=== PATIENT | male | born 1970 | race Caucasian/White ===

== ENCOUNTER 2018-02-16 14:31 | Emergency (ER) | payer BC, OTHER ==
[2018-02-16] MEDS ORDERED: KETOROLAC TROMETHAMINE 60 MG/2 ML SDV IM ONE (15:04)
[2018-02-16] MEDS ORDERED: ACETAMINOPHEN 325 MG TABLET PO ONE (15:05)
--- NOTE | 2018-02-16 15:06 | ER Document Report ---
ED Medical Screen (RME) - General Chief Complaint: Fall Injury Stated Complaint: NECK/BACK/CHEST PAIN Time Seen by Provider: 02/16/18 14:56 TRAVEL OUTSIDE OF THE [place] IN LAST 30 DAYS: No - HPI Patient complains to provider of: [email or web address] Notes: 02/16/18 15:03 47-year-old man presents after fall at work. Patient was working about 8 feet in the air when the scaffolding he was on collapsed patient fell feet for 8 feet off the ground down onto his upper back and neck. Patient initially had paresthesias in his lower extremities not able to rise. Able to get himself to his feet and actually drove himself to the department. Patient emergently placed in a c-collar due to midline cervical spine tenderness and upper midline tenderness his thoracic spine 10/10 sharp in nature without radiation nothing is made the pain better or worse. Patient currently denies all neurologic symptoms. Denies any blood thinner use. Patient denies abdominal pain or trauma. All of his pain is located proximal level of T8 up to the back of his neck. Patient also has a sharp reproducible pain in his sternum. This pain also is 10/10 sharp in nature without radiation nothing is made it better or worse. Denies shortness of breath or coughing. 02/16/18 15:05 - Related Data Allergies/Adverse Reactions: No Known Drug Allergies Allergy (Verified 02/16/18 14:32) mushrooms Allergy (Uncoded 02/16/18 14:32) Past Medical History - Social History Chew tobacco use (# tins/day): Yes Frequency of alcohol use: None Drug Abuse: None - Past Medical History Cardiac Medical History: Reports: Hx Hypertension Renal/ Medical History: Denies: Hx Peritoneal Dialysis Past Surgical History: Reports: Hx Cholecystectomy, Hx Orthopedic Surgery - ankle - Immunizations Hx Diphtheria, Pertussis, Tetanus Vaccination: No Physical Exam - Vital signs Vitals: Temp Pulse Resp BP Pulse Ox 99.1 F 82 18 147/82 H 99 02/16/18 14:35 02/16/18 14:35 02/16/18 14:35 02/16/18 14:35 02/16/18 14:35 Course - Vital Signs Vital signs: Temp Pulse Resp BP Pulse Ox 99.1 F 82 18 147/82 H 99 02/16/18 14:35 02/16/18 14:35 02/16/18 14:35 02/16/18 14:35 02/16/18 14:35 Doctor's Discharge - Discharge Referrals: SERGIO GUERRERO MD [Primary Care Provider] - Follow up as needed
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
[2018-02-16] MEDS ORDERED: OXYCODONE-ACETAMINOPHEN 5-325 MG TABLET PO ONE (16:25)
[2018-02-16 16:39] LABS: URINE AMPHETAMINES SCREEN NEGATIVE; URINE BARBITURATES SCREEN NEGATIVE; URINE BENZODIAZEPINES SCREEN NEGATIVE; URINE COCAINE SCREEN NEGATIVE; URINE MARIJUANA (THC) SCREEN NEGATIVE; URINE METHADONE SCREEN NEGATIVE; URINE PHENCYCLIDINE SCREEN NEGATIVE
[2018-02-16 17:11] VITALS: BP 130/88
== END 2018-02-16 17:00 | disposition home or self-care (01) ==
LOC: ER 14:31
DX: S20.219A Contusion of unspecified front wall of thorax, initial encounter (principal); S39.92XA Unspecified injury of lower back, initial encounter; M54.2 Cervicalgia; M54.9 Dorsalgia, unspecified; R07.9 Chest pain, unspecified; M79.1 Myalgia; W12.XXXA Fall on and from scaffolding, initial encounter; Z87.891 Personal history of nicotine dependence; I10 Essential (primary) hypertension
CPT/HCPCS: 99284; 96372; 80307; 70450; 71250; 72125; L0120; J1885

== ENCOUNTER 2018-03-29 11:53 | Emergency (ER) | payer SELFPAY ==
[2018-03-29] MEDS ORDERED: HYDROMORPHONE HCL INJ/PF 2 MG/ML AMPULE IV ONE ×2 (12:04→12:20)
[2018-03-29] MEDS ORDERED: ONDANSETRON 4 MG TAB.RAPDIS PO ONE (12:04)
[2018-03-29] MEDS ORDERED: NORMAL SALINE 1000 ML 1,000 ML IV ONE ×2 (12:04)
[2018-03-29 12:11] LABS: ABSOLUTE EOSINOPHILS # (AUTO) 0.2 10^3/uL (0.0-0.6); ABSOLUTE LYMPHOCYTES (AUTO) 1.5 10^3/uL (0.5-4.7); ABSOLUTE MONOCYTES (AUTO) 0.7 10^3/uL (0.1-1.4); ABSOLUTE NEUT (AUTO) 5.6 10^3/uL (1.7-8.2); BASOPHILS % (AUTO) 0.6 % (0-2); EOSINOPHILS % (AUTO) 2.4 % (0-6); HEMATOCRIT 43.9 % (37.9-51.0); HEMOGLOBIN 15.4 g/dL (13.5-17.0); LYMPHOCYTES % (AUTO) 18.3 % (13-45); MEAN CORPUSCULAR HEMOGLOBIN 28.4 pg (27.0-33.4); MEAN CORPUSCULAR VOLUME 81 fl (80-97); MONOCYTES % (AUTO) 8.4 % (3-13); PLATELET COUNT 207 10^3/uL (150-450); RED CELL DISTRIBUTION WIDTH 13.6 % (11.5-14.0); SEGMENTED NEUTROPHILS % (AUTO) 70.3 % (42-78); TOTAL CELLS COUNTED % (AUTO) 100 %
[2018-03-29 12:28] LABS: ANION GAP 13 (5-19); BLOOD UREA NITROGEN 16 mg/dL (7-20); CALCIUM 9.7 mg/dL (8.4-10.2); CARBON DIOXIDE 29 mmol/L (22-30); CHLORIDE 102 mmol/L (98-107); CREATINE KINASE 105 U/L (55-170); GLUCOSE 111 mg/dL (75-110); POTASSIUM 4.4 mmol/L (3.6-5.0); SODIUM 143.8 mmol/L (137-145)
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
[2018-03-29] MEDS ORDERED: HYDROMORPHONE HCL INJ/PF 2 MG/ML AMPULE IV PRN (13:20)
[2018-03-29 14:31] VITALS: BP 130/79
== END 2018-03-29 14:45 | disposition short-term general hospital (02) ==
LOC: ER 11:53
DX: T20.29XA Burn of second degree of multiple sites of head, face, and neck, initial encounter (principal); T23.232A Burn of second degree of multiple left fingers (nail), not including thumb, initial encounter; T23.272A Burn of second degree of left wrist, initial encounter; T22.232A Burn of second degree of left upper arm, initial encounter; X08.8XXA Exposure to other specified smoke, fire and flames, initial encounter; Y92.814 Boat as the place of occurrence of the external cause; I10 Essential (primary) hypertension; Z91.018 Allergy to other foods; Z87.891 Personal history of nicotine dependence
CPT/HCPCS: 96376; 99285; 96361; 96374; 36415; 82550; 85025; 80048; S0119; J1170; J7030

== ENCOUNTER 2019-03-04 21:31 | Emergency (ER) | payer SELFPAY ==
[2019-03-04] MEDS ORDERED: ASPIRIN 81 MG TABLET, CHEWABLE PO ONE (22:22)
--- NOTE | 2019-03-04 22:56 | RADIOLOGY REPORT (SQ) ---
EXAM DESCRIPTION: XR CHEST 1 VIEW COMPLETED DATE/TME: 03/04/2019 22:22 CLINICAL HISTORY: 48 years Male, CP COMPARISON: 03/25/14 NUMBER OF VIEWS/TECHNIQUE: 1/AP FINDINGS: Adequate lung volume, clear parenchyma, normal cardiac silhouette, and intact bony thorax.Upper abdominal clips. IMPRESSION: No acute cardiopulmonary findings.
--- NOTE | 2019-03-04 22:59 | ER Document Report ---
ED Medical Screen (RME) - General Chief Complaint: Chest Pain Stated Complaint: CHEST PAIN Time Seen by Provider: 03/04/19 22:54 Primary Care Provider: SHAKILA HINSON MD [Primary Care Provider] - Follow up as needed Notes: 48-year-old male with hypertension presents to the emergency department with cough x2 days and chest pain since today. Patient states he was sitting at home at rest in the chair when he started becoming lightheaded, dizzy, diaphoretic, nauseous and had chest pain. Denies any fevers or recent illness, denies chills, denies vision changes, denies any numbness or tingling or paresthesias i n any of extremities, denies any abdominal pain, vomited one time on the way here, denies any diarrhea/constipation. No other complaints. Patient is a former smoker quit 10 years ago TRAVEL OUTSIDE OF THE [place] IN LAST 30 DAYS: No - Related Data Allergies/Adverse Reactions: No Known Drug Allergies Allergy (Verified 02/16/18 14:32) mushrooms Allergy (Uncoded 02/16/18 14:32) Past Medical History - Past Medical History Cardiac Medical History: Reports: Hx Hypertension Renal/ Medical History: Denies: Hx Peritoneal Dialysis Past Surgical History: Reports: Hx Cholecystectomy, Hx Orthopedic Surgery - Lt ankle; Lt knee - Immunizations Hx Diphtheria, Pertussis, Tetanus Vaccination: No Physical Exam - Vital signs Vitals: Temp Pulse Resp BP Pulse Ox 98.0 F 78 22 H 132/88 H 97 03/04/19 22:13 03/04/19 22:13 03/04/19 22:13 03/04/19 22:13 03/04/19 22:13 Course - Vital Signs Vital signs: Temp Pulse Resp BP Pulse Ox 98.0 F 78 22 H 132/88 H 97 03/04/19 22:13 03/04/19 22:13 03/04/19 22:13 03/04/19 22:13 03/04/19 22:13 Doctor's Discharge - Discharge Referrals: SHAKILA HINSON MD [Primary Care Provider] - Follow up as needed
[2019-03-04 23:22] LABS: ABSOLUTE BASOPHILS # (AUTO) 0.1 10^3/uL (0.0-0.2); ABSOLUTE EOSINOPHILS # (AUTO) 0.2 10^3/uL (0.0-0.6); ABSOLUTE LYMPHOCYTES (AUTO) 2.2 10^3/uL (0.5-4.7); ABSOLUTE MONOCYTES (AUTO) 0.6 10^3/uL (0.1-1.4); ABSOLUTE NEUT (AUTO) 3.6 10^3/uL (1.7-8.2); BASOPHILS % (AUTO) 0.8 % (0-2); EOSINOPHILS % (AUTO) 3.4 % (0-6); HEMATOCRIT 42.1 % (37.9-51.0); HEMOGLOBIN 14.8 g/dL (13.5-17.0); LYMPHOCYTES % (AUTO) 32.8 % (13-45); MEAN CORPUSCULAR HEMOGLOBIN 29.1 pg (27.0-33.4); MEAN CORPUSCULAR HGB CONC 35.2 g/dL (32.0-36.0); MEAN CORPUSCULAR VOLUME 83 fl (80-97); PLATELET COUNT 217 10^3/uL (150-450); RED BLOOD COUNT 5.08 10^6/uL (4.35-5.55); RED CELL DISTRIBUTION WIDTH 13.8 % (11.5-14.0); TOTAL CELLS COUNTED % (AUTO) 100 %; WHITE BLOOD COUNT 6.6 10^3/uL (4.0-10.5)
[2019-03-04 23:41] LABS: ALANINE AMINOTRANSFERASE 69 U/L (21-72); ALBUMIN 4.6 g/dL (3.5-5.0); ALKALINE PHOSPHATASE 46 U/L (38-126); ANION GAP 12 (5-19); ASPARTATE AMINO TRANSFERASE 48 U/L (17-59); BILIRUBIN,DIRECT 0.3 mg/dL (0.0-0.4); BILIRUBIN,TOTAL 0.7 mg/dL (0.2-1.3); BLOOD UREA NITROGEN 14 mg/dL (7-20); CALCIUM 9.3 mg/dL (8.4-10.2); CARBON DIOXIDE 29 mmol/L (22-30); CHLORIDE 96 mmol/L (98-107); GLUCOSE 95 mg/dL (75-110); POTASSIUM 3.8 mmol/L (3.6-5.0); SODIUM 136.5 mmol/L (137-145); TOTAL PROTEIN 7.2 g/dL (6.3-8.2)
[2019-03-05] MEDS ORDERED: BENZONATATE 100 MG CAPSULE PO ONE (00:57)
[2019-03-05] MEDS ORDERED: KETOROLAC TROMETHAMINE INJ/PF 30 MG/1 ML SDV IV ONE (00:57)
[2019-03-05] MEDS ORDERED: PREDNISONE 20 MG TABLET PO ONE (00:57)
--- NOTE | 2019-03-05 01:39 | ER Document Report ---
Entered by MANSI VILLATORO SCRIBE 03/05/19 0102 Acting as scribe for:BLAKE AYALA MD ED General - General Chief Complaint: Chest Pain Stated Complaint: CHEST PAIN Time Seen by Provider: 03/04/19 22:54 Primary Care Provider: SHAKILA HINSON MD [Primary Care Provider] - Follow up as needed Mode of Arrival: Ambulatory Information source: Patient Notes: Patient is a 48 year old male with HTN presents to the emergency department complaining of chest pain and a cough. Patient states he developed sternal and left anterior chest pain today while sitting down. Patient states he developed a cough, nausea, dizziness and cold sweats 2 days ago. He describes his cough as productive with white sputum. Patient denies any fevers. TRAVEL OUTSIDE OF THE [place] IN LAST 30 DAYS: No - Related Data Allergies/Adverse Reactions: No Known Drug Allergies Allergy (Verified 02/16/18 14:32) mushrooms Allergy (Uncoded 02/16/18 14:32) Past Medical History - General Information source: Patient - Social History Smoking Status: Former Smoker Cigarette use (# per day): No Chew tobacco use (# tins/day): No Smoking Education Provided: No Frequency of alcohol use: None Drug Abuse: None Lives with: Family Family History: Reviewed & Not Pertinent - Past Medical History Cardiac Medical History: Reports: Hx Hypertension Past Surgical History: Reports: Hx Cholecystectomy, Hx Orthopedic Surgery - Lt ankle; Lt knee - Immunizations Hx Diphtheria, Pertussis, Tetanus Vaccination: No Review of Systems - Review of Systems Constitutional: See HPI, Chills, Diaphoresis EENT: No symptoms reported Cardiovascular: See HPI, Chest pain, Dizziness Respiratory: No symptoms reported Gastrointestinal: See HPI, Nausea Genitourinary: No symptoms reported Male Genitourinary: No symptoms reported Musculoskeletal: No symptoms reported Skin: No symptoms reported Hematologic/Lymphatic: No symptoms reported Neurological/Psychological: No symptoms reported -: Yes All other systems reviewed and negative Physical Exam - Vital signs Vitals: Temp Pulse Resp BP Pulse Ox 98.0 F 78 22 H 132/88 H 97 03/04/19 22:13 03/04/19 22:13 03/04/19 22:13 03/04/19 22:13 03/04/19 22:13 - Notes Notes: GENERAL: Alert, interacts well. No acute distress. HEAD: Normocephalic, atraumatic. EYES: Pupils equal, round, and reactive to light. Extraocular movements intact. ENT: Oral mucosa moist, tongue midline. NECK: Full range of motion. Supple. Trachea midline. LUNGS: Clear to auscultation bilaterally, no wheezes, rales, or rhonchi. No respiratory distress. Sternum and left anterior chest wall tenderness to palpation, reproduces chief complaint. HEART: Regular rate and rhythm. No murmurs, gallops, or rubs. ABDOMEN: Soft, obese, non-tender. Non-distended. Bowel sounds present in all 4 quadrants. No guarding, rigidity, or rebound. EXTREMITIES: Moves all 4 extremities spontaneously. No peripheral edema. No cyanosis. NEUROLOGICAL: Alert and oriented x3. Normal speech. PSYCH: Normal affect, normal mood. SKIN: Warm, dry, normal turgor. No rashes or lesions noted. Course - Re-evaluation Re-evalutation: 03/05/19 02:08 Patient's EKG is unchanged from previous, except for a single PVC that was noted. Patient's lab work is unremarkable including an undetectable troponin at least 6 hours after the onset of his constant chest pain. Physical exam does show his chest pain to be sternally and left anterior chest located, reproducible with palpation, deep breath, cough and these actions reproduce the chief complaint pain. - Vital Signs Vital signs: Temp Pulse Resp BP Pulse Ox 98.0 F 78 22 H 132/88 H 97 03/04/19 22:13 03/04/19 22:13 03/04/19 22:13 03/04/19 22:13 03/04/19 22:13 - Laboratory Result Diagrams: 03/04/19 23:09 03/04/19 23:09 Laboratory results interpreted by me: 03/04/19 23:09 Sodium 136.5 L Chloride 96 L - Diagnostic Test Radiology reviewed: Image reviewed, Reports reviewed - Chest x-ray does not show any acute cardiopulmonary findings. - EKG Interpretation by [place] EKG shows normal: Sinus rhythm, [place], Intervals, QRS Complexes. abnormal: ST-T Waves - Borderline inferior T abnormalities Rate: Normal - 80 Rhythm: NSR, PVC's When compared to previous EKG there are: No significant change Discharge - Discharge Clinical Impression: Productive cough, Anterior chest wall pain Condition: Stable Disposition: HOME, SELF-CARE Additional Instructions: Cough Suppressant/Expectorant Medication: You are to use a cough medication such as Robitussin-DM or Delsym DM as n eeded for relief of symptoms. This medicine is a combination of an expectorant (to make the mucous thinner and more easily "coughed up") and a cough suppressant (to reduce the frequency of coughing). The cough-suppressant medicine is related to narcotics. You may experience mild nausea and sleepiness. Some patients who are very sensitive to narcotics may have stomach pain from this medicine. Taking the medicine with food reduces these side effects. Do not drive or work with machinery until you know how this medicine affects you. Chest Wall Pain: Your chest pain has been diagnosed as coming from the chest wall. This is often caused by straining the muscles or joints in the chest during physical activity, direct trauma, coughing, or vigorous vomiting. Persons with arthritis are especially prone to this type of pain, due to inflammation of the cartilage joints near the breast bone. Occasionally, no cause can be found. Rest from strenuous physical activity. This kind of chest pain is usually made worse by movement of the chest. Depending on the symptoms, we may prescribe medicine for pain, muscle relaxation, and antiinflammatory effects. If the pain is new, and seems to be due to muscle strain, cold packs can help. Otherwise, apply gentle warmth to the painful area for 15 minutes every hour or two. You should contact the doctor immediately if things change. Further evaluation is needed if you develop a fever or cough, if the nature of the pain changes, or if you become short of breath. Take Tylenol and ibuprofen or Aleve for chest wall pain. Take Robitussin-DM or Delsym DM to help suppress your cough. Take the Tessalon Perles as prescribed to control your cough. Drink plenty of fluids and get plenty of rest. Follow-up with a local medical doctor if not improving. RETURN TO THE EMERGENCY ROOM IF ANY NEW OR WORSENING SYMPTOMS. Prescriptions: Benzonatate [Tessalon Perles 100 mg Capsule] 100 mg PO ASDIR PRN #30 capsule PRN Reason: Referrals: SHAKILA HINSON MD [Primary Care Provider] - Follow up as needed Scribe Attestation: 03/05/19 01:43 I personally performed the services described in the documentation, reviewed and edited the documentation which was dictated to the scribe in my presence, and it accurately records my words and actions. I personally performed the services described in the documentation, reviewed and edited the documentation which was dictated to the scribe in my presence, and it accurately records my words and actions.
[2019-03-05 03:08] VITALS: BP 114/67
--- NOTE | 2019-03-05 19:21 | EKG REPORT ---
SEVERITY:- BORDERLINE ECG - SINUS RHYTHM VENTRICULAR PREMATURE COMPLEX BORDERLINE T ABNORMALITIES, INFERIOR LEADS : Confirmed by: Iza Boothe MD 05-Mar-2019 19:19:40
== END 2019-03-05 03:08 | disposition home or self-care (01) ==
LOC: ER 21:31
DX: R05 Cough (principal); R07.89 Other chest pain; I10 Essential (primary) hypertension; Z90.49 Acquired absence of other specified parts of digestive tract
CPT/HCPCS: 93005; 99285; 96374; 36415; 85025; 80053; 84484; 71045; 93010; J1885; J7512